=== PATIENT | male | born 1960 | race Caucasian/White ===

== ENCOUNTER 2016-08-24 09:38 | Inpatient (IN) | payer MEDICARE, OTHER ==
[~2016-08-24] VITALS: Ht 182.9 cm; Wt 59.3 kg
[2016-08-24 09:40] VITALS: BP 135/68; PULSE 75; RESP 16; TEMP 98.2; O2SAT 98
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
[2016-08-24 12:00] VITALS: BP 117/64; PULSE 78; RESP 15; O2SAT 98
[2016-08-24 12:29] LABS: BASOPHIL % 0.6 % (0.0-2.0); EOSINOPHIL % 0.9 % (0.0-4.0); HEMO FLAGS DIFF FINAL; LYMPH % 33.6 % (9.0-44.0); LYMPHOCYTE # 1.4 TH/MM3 (1.0-4.8); MEAN CORPUSCULAR HEMOGLOBIN 30.6 PG (27.0-34.0); MONO % 17.6 % (0.0-8.0); NEUT % 47.3 % (16.0-70.0); PLATELET COUNT 334 TH/MM3 (150-450); RED BLOOD COUNT 4.67 MIL/MM3 (4.50-5.90); RED CELL DISTRIBUTION WIDTH 13.8 % (11.6-17.2); WHITE BLOOD COUNT 4.2 TH/MM3 (4.0-11.0)
[2016-08-24 12:57] LABS: ALKALINE PHOSPHATASE 64 U/L (45-117); ALT (GPT) 34 U/L (12-78); ANION GAP 7 MEQ/L (5-15); AST (GOT) 33 U/L (15-37); BICARBONATE 29.7 MEQ/L (21.0-32.0); BLOOD UREA NITROGEN 16 MG/DL (7-18); CHLORIDE 104 MEQ/L (98-107); GLOMERULAR FILTRATION RATE 68 ML/MIN (>89); POTASSIUM 4.3 MEQ/L (3.5-5.1); SODIUM (NA) 141 MEQ/L (136-145); TOTAL BILIRUBIN ADULT 0.5 MG/DL (0.2-1.0)
[2016-08-24 16:00] VITALS: BP 125/68; PULSE 72; RESP 16; O2SAT 98
[2016-08-24] MEDS ORDERED: SERO50TA PO (16:41)
[2016-08-24] MEDS ORDERED: KLON2TAB PO (16:41)
[2016-08-24] MEDS ORDERED: SUBO8MIS SL (16:41)
[2016-08-24] MEDS ORDERED: SUVO1TAB4 PO (16:41)
[2016-08-24] MEDS ORDERED: CELE40TA PO (16:43)
[2016-08-24] MEDS ORDERED: SYNT25TA PO (16:43)
[2016-08-24 18:20] LABS: AMPHETAMINE, URINE NEG (NEG); BARBITURATES, URINE NEG (NEG); COCAINE, URINE NEG (NEG)
[2016-08-24 19:00] VITALS: BP 115/68; PULSE 68; RESP 18; TEMP 97.4; O2SAT 97
[2016-08-24 22:15] VITALS: BP 142/82; PULSE 67; RESP 18; TEMP 97.8; O2SAT 96
[2016-08-24] MEDS ORDERED: hydrOXYzine HCL 50 MG TAB PO ONE (22:30)
[2016-08-25 02:56] VITALS: BP 114/59; PULSE 78; RESP 18; TEMP 97.6; O2SAT 97
[2016-08-25 06:43] VITALS: BP 114/65; PULSE 80; RESP 18; O2SAT 99
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
[2016-08-25 11:00] VITALS: BP 111/71; PULSE 66; RESP 18
[2016-08-25] MEDS ORDERED: ALUMINUM/MAGNESIUM/SIMETH 30 ML CUP PO PRN (11:00)
[2016-08-25] MEDS ORDERED: MAGNESIUM HYDROXIDE SUSP 30 ML CUP PO PRN (11:00)
[2016-08-25] MEDS ORDERED: ACETAMINOPHEN 325 MG TAB PO PRN (11:00)
[2016-08-25 19:18] VITALS: BP 136/76; PULSE 64; RESP 16; TEMP 99.6; O2SAT 98
[2016-08-26 05:39] VITALS: BP 129/68; PULSE 71; RESP 16; TEMP 99.8; O2SAT 94
[2016-08-26 09:17] LABS: ANION GAP 8 MEQ/L (5-15); BICARBONATE 27.4 MEQ/L (21.0-32.0); BLOOD UREA NITROGEN 13 MG/DL (7-18); CHLORIDE 101 MEQ/L (98-107); GLOMERULAR FILTRATION RATE 73 ML/MIN (>89); HDL CHOLESTEROL 71.5 MG/DL (40.0-60.0); LDL CHOLESTEROL 72 MG/DL (0-99); SODIUM (NA) 136 MEQ/L (136-145)
[2016-08-26 10:10] LABS: HEMOGLOBIN A1a 1.1 %; HEMOGLOBIN A1b 1.5 %; HEMOGLOBIN Ao 85.5 %; HEMOGLOBIN LA1C 2.3 %; HEMOGLOBIN P3 3.6 %
[2016-08-26] MEDS ORDERED: LOPERAMIDE HCL 2 MG CAP PO PRN (11:00)
[2016-08-26] MEDS ORDERED: IBUPROFEN 800 MG TAB PO PRN (11:00)
[2016-08-26] MEDS ORDERED: PROMETHAZINE HCL 25 MG TAB PO PRN (11:00)
[2016-08-26] MEDS ORDERED: PILL SPLITTER OTHER PRN (11:00)
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
[2016-08-26] MEDS: QUEtiapine FUMARATE 25 MG TAB PO SCH ×2 (13:00→21:30)
[2016-08-26] MEDS: clonazePAM 0.5 MG TAB PO SCH ×2 (13:00→21:30)
[2016-08-26] MEDS: cloNIDine HCL 0.1 MG TAB PO SCH ×3 (13:00→21:30)
[2016-08-26 18:22] VITALS: BP 109/59; PULSE 63; RESP 18; TEMP 98.7; O2SAT 95
[2016-08-27 06:15] VITALS: BP 143/81; PULSE 74; RESP 16; TEMP 98.1
[2016-08-27] MEDS: clonazePAM 0.5 MG TAB PO SCH ×3 (06:18→21:51)
[2016-08-27] MEDS: cloNIDine HCL 0.1 MG TAB PO SCH ×2 (08:21→21:26)
[2016-08-27] MEDS: QUEtiapine FUMARATE 25 MG TAB PO SCH (08:21)
--- NOTE | 2016-08-27 13:26 | HHI.PYPN ---
Subjective Remarks Patient continues to feel depressed and anxious. He is requesting to have his Seroquel reinstated at night and an increased dose of Klonopin for anxiety symptoms. Review of Systems ROS Limitations: Clinical Condition Except as stated in HPI: all other systems reviewed are Neg Objective Alert: Yes [place]: Person (ox4) Mood: Anxious Affect: Restricted Memory Intact: Immediate, Recent, Remote Hallucinations: Other (negative) Delusions: No Delusion Type: Other Suicidal: Ideation (to drive off a bridge) Homicidal: Ideation (deneis any) Insight/Judgement Impaired but adequate. Vitals/IOs Vital Signs Date Time Temp Pulse Resp B/P Pulse Ox O2 Delivery O2 Flow Rate FiO2 08/27/16 06:15 98.1 74 16 143/81 08/26/16 18:22 95 08/25/16 11:00 Room Air Assessment & Plan Problem List: (1) Post traumatic stress disorder (PTSD) ICD Code: F43.10 Assessment & Plan Estimated LOS: days patient remains angry, depressed and anxious. He does not feel stable or safe. He is requesting an increase in his medicines and this physician agrees. He'll be started on Seroquel and his dose of Klonopin will be slightly increased. Justification for Cont. Inpt. Continued depression with suicidal ideation and plans. Eduardo Rodriguez MD Aug 27, 2016 13:26
[2016-08-27 19:40] VITALS: BP 115/68; PULSE 68; RESP 16; TEMP 98.9; O2SAT 99
[2016-08-27] MEDS: QUEtiapine FUMARATE 300 MG TAB PO SCH (21:26)
[2016-08-28 05:50] VITALS: BP 124/73; PULSE 70; RESP 16; TEMP 97.9
[2016-08-28] MEDS: clonazePAM 0.5 MG TAB PO SCH ×2 (06:03→14:00)
[2016-08-28] MEDS: cloNIDine HCL 0.1 MG TAB PO SCH ×2 (09:00→09:09)
[2016-08-28] MEDS: QUEtiapine FUMARATE 300 MG TAB PO SCH (09:00)
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
[2016-08-28] MEDS ORDERED: SERO300T PO (11:17)
[2016-08-28] MEDS ORDERED: CLON1 PO (11:17)
== END 2016-08-28 15:00 | disposition home or self-care (01) | DRG 882 ==
LOC: NEPA 09:38 → NEDA 08-25 10:54 → H260 08-25 11:45
PROVIDERS: ADMIT Psychiatry & Neurology Psychiatry; ATTEND Psychiatry & Neurology Psychiatry
DX: F43.10 Post-traumatic stress disorder, unspecified (principal); R45.851 Suicidal ideations; F11.20 Opioid dependence, uncomplicated; Z59.0 Homelessness; F41.9 Anxiety disorder, unspecified
CPT/HCPCS: 80048; 80053; 80061; 80307; 80320; 83036; 85025; 99285

== ENCOUNTER 2016-10-18 20:14 | Emergency (ER) | payer MEDICARE, MEDICAID ==
[~2016-10-18] VITALS: Ht 182.9 cm; Wt 66.0 kg
[~2016-10-18 20:14] MED LIST: CELE40TA PO; CLON1 PO; KLON2TAB PO; SERO300T PO; SERO50TA PO; SUBO8MIS SL; SUVO1TAB4 PO; SYNT25TA PO
[2016-10-18 20:19] VITALS: BP 106/55; PULSE 76; RESP 14; TEMP 98.6; O2SAT 95
[2016-10-18] MEDS ORDERED: CLOB0.0571 TOPICAL (20:27)
[2016-10-18] MEDS ORDERED: BUPIVACAINE HCL PF 0.5% 10 ML VIAL INFIL ONE (20:30)
[2016-10-18] MEDS ORDERED: TETANUS/DIPHTHERIA TOXOID ADULT 0.5 ML VIAL IM ONE (20:30)
[2016-10-18] MEDS ORDERED: LIDOCAINE HCL 1% 50 ML VIAL INFIL ONE (20:30)
--- NOTE | 2016-10-18 20:52 | PD ---
Physical Exam Date Seen by Provider: Oct 18, 2016 Time Seen by Provider: 20:51 Narrative I was asked by Dr. Sam to repair laceration to the patient's right third finger on the volar surface between the PIP and DIP joint. Please see his documentation for full history and physical. Data Data Last Documented VS Vital Signs Date Time Temp Pulse Resp B/P Pulse Ox O2 Delivery O2 Flow Rate FiO2 10/18/16 20:19 98.6 76 14 106/55 95 Orders Bupivacaine Pf 0.5% Inj (Marcaine Pf 0.5 (10/18/16 20:30) Lidocaine 1% Inj (50 Ml) (Xylocaine 1% I (10/18/16 20:30) Tetanus/Diphtheria Tox Adult (Tetanus/Di (10/18/16 20:30) MDM Supervised Visit with ABAD: No Procedures Procedure Narrative LACERATION LOCATION: Right third finger LENGTH: 2.5 cm NUMBER OF STITCHES/BIJU: 6 simple interrupted sutures REPAIR: The area of the laceration was prepped with Betadine and sterilely draped. A digital block was performed with 1% lidocaine and 0.5% Marcaine. The wound was copiously irrigated and explored without evidence of foreign body, tendon injury or neurovascular injury. The wound was closed using 4-0 Prolene. This was a single layer repair. A sterile dressing was applied. The patient was advised to keep the dressing clean and dry. Patient tolerated the procedure well. Azeb Albert Oct 18, 2016 20:52
[2016-10-18] MEDS ORDERED: CEPH-460 PO (20:58)
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
[2016-10-18] MEDS ORDERED: IBUPROFEN 600 MG TAB PO ONE (21:30)
== END 2016-10-18 21:27 | disposition home or self-care (01) ==
LOC: NEPD 20:14
DX: S61.212A Laceration without foreign body of right middle finger without damage to nail, initial encounter (principal); J44.9 Chronic obstructive pulmonary disease, unspecified; W26.0XXA Contact with knife, initial encounter; Y93.89 Activity, other specified; Y92.9 Unspecified place or not applicable
CPT/HCPCS: 12001; 90471; 90714

== ENCOUNTER 2016-11-16 22:55 | Emergency (ER) | payer MEDICARE ==
[~2016-11-16] VITALS: Ht 182.9 cm; Wt 68.0 kg
[~2016-11-16 22:55] MED LIST changes: +CEPH-460 PO; +CLOB0.0571 TOPICAL; -CLON1 PO; -SERO300T PO; -SERO50TA PO
[2016-11-16 23:35] VITALS: BP 121/71; PULSE 77; RESP 16; TEMP 98.1; O2SAT 97
[2016-11-17 01:43] VITALS: BP 93/51; PULSE 68; RESP 18; TEMP 97.7; O2SAT 98
[2016-11-17] MEDS ORDERED: CEPH-460 PO (03:22)
[2016-11-17] MEDS ORDERED: MOTR200T4 PO (03:22)
[2016-11-17] MEDS ORDERED: PERM5CRE11 TOPICAL (03:22)
--- NOTE | 2016-11-17 03:22 | PD ---
HPI Chief Complaint: Skin Problem Time Seen by Provider: 03:17 Travel History International Travel<30 days: No Contact w/Intl Traveler<30days: No Traveled to known affect area: No History of Present Illness HPI 56-year-old male presents to the ER today because he states that he had been stung by a jellyfish 3 days ago on his hands. He states that it has been irritating him more in the past few days. He also states that he thinks he has a parasite on his hands, states that he tried to pull him out. He denies any fevers or any other issues. Modifying Factors: None Associated Signs & Symptoms: Stung by jellyfish 3 days ago on the hands, thinks he has parasite on the hands Risk Factors: None PFSH Past Medical History Anxiety: Yes Depression: Yes Cancer: No Cardiovascular Problems: No COPD: Yes Diabetes: No Diminished Hearing: No Endocrine: Yes Genitourinary: No Immune Disorder: No Musculoskeletal: No Neurologic: No Psychiatric: Yes (PTSD) Reproductive: No Respiratory: Yes Thyroid Disease: Yes Tetanus Vaccination: < 5 Years Past Surgical History Abdominal Surgery: No Cardiac Surgery: No Ear Surgery: No Endocrine Surgery: No Eye Surgery: No Genitourinary Surgery: No Gynecologic Surgery: No Oral Surgery: No Thoracic Surgery: No Other Surgery: Yes Social History Alcohol Use: No Tobacco Use: No Substance Use: Yes (suboxone and benzos) Allergies-Medications (Allergen,Severity, Reaction): Uncoded Allergies: GASTON (Allergy, Unknown, RASH\, 10/18/16) Reported Meds & Prescriptions Reported Meds & Active Scripts Active Reported Synthroid (Levothyroxine Sodium) 25 Mcg Tab 25 Mcg PO DAILY Celexa (Citalopram Hydrobromide) 40 Mg Tab 40 Mg PO DAILY Suboxone Sublingual Film (Buprenorphine-Naloxone Sublingual Film) 8-2 Mg Film 2.5 Film SL DAILY Unique ID number required: Klonopin (Clonazepam) 2 Mg Tab 2 Mg PO TID Belsomra (Suvorexant) 20 Mg Tab 20 Mg PO HS Review of Systems Except as stated in HPI: all other systems reviewed are Neg Physical Exam Narrative GENERAL: Well-developed middle age white male patient currently in mild distress. Awake and oriented 3. SKIN: Focused skin assessment warm/dry. There are notable small erythematous plaques notable on both hands and forearm areas. There are some mild surrounding erythema to these areas. No underlying fluctuance. HEAD: Atraumatic. Normocephalic. EYES: Pupils equal and round. No scleral icterus. No injection or drainage. ENT: No nasal bleeding or discharge. Mucous membranes pink and moist. NECK: Trachea midline. No JVD. CARDIOVASCULAR: Regular rate and rhythm. No murmur appreciated. RESPIRATORY: No accessory muscle use. Clear to auscultation. Breath sounds equal bilaterally. GASTROINTESTINAL: Abdomen soft, non-tender, nondistended. Hepatic and splenic margins not palpable. MUSCULOSKELETAL: No obvious deformities. No clubbing. No cyanosis. No edema. NEUROLOGICAL: Awake and alert. No obvious cranial nerve deficits. Motor grossly within normal limits. Normal speech. PSYCHIATRIC: Appropriate mood and affect; insight and judgment normal. Data Data Last Documented VS Vital Signs Date Time Temp Pulse Resp B/P Pulse Ox O2 Delivery O2 Flow Rate FiO2 11/17/16 01:43 71 18 11/17/16 01:43 97.7 93/51 98 Room Air [facility] Medical Decision Making Medical Screen Exam Complete: Yes Emergency Medical Condition: Yes Medical Record Reviewed: Yes Differential Diagnosis Jellyfish stings versus cellulitis versus scabies Narrative Course Considering the history, my plan would be to treat him symptomatically for the irritation. He may have some mild cellulitis surrounding some the sting sites. I do not see any obvious signs of her sites currently although scabies is a possibility. At this point, my plan would be to treat him and have him follow- up with primary care physician. Return for any new issues as needed. The plan has discussed with him and he states understanding. Diagnosis Primary Impression: Jellyfish sting Additional Impression: Scabies Med/Other Pt SpecificInfo: Prescription(s) given Scripts Permethrin Topical (Elimite Topical)5% Cream1 Applic TOPICAL ONCE #1 TUBE Ref 0 Prov:Kauhsal Renteria MD 11/17/16 Ibuprofen (Motrin Ib)200 Mg [id number] Mg PO Q6H PRN (PAIN SCALE 1 TO 10) #21 TAB Ref 0 Prov:Kaushal Renteria MD 11/17/16 Cephalexin (Keflex)500 Mg [id number] Mg PO Q6H #28 CAP Ref 0 Prov:Kaushal Renteria MD 11/17/16 Disposition: 01 DISCHARGE HOME Condition: Stable Kaushal Renteria MD November 17, 2016 03:22
[2016-11-17 04:05] VITALS: BP 104/69; PULSE 65; RESP 18; O2SAT 100
== END 2016-11-17 05:10 | disposition home or self-care (01) ==
LOC: NEPC 22:55
DX: T63.621A Toxic effect of contact with other jellyfish, accidental (unintentional), initial encounter (principal); B86 Scabies
CPT/HCPCS: 99283